=== PATIENT | female | born 2000 | race Caucasian/White ===

== ENCOUNTER 2021-06-05 05:35 | Day surgery (SDC) | payer SELFPAY ==
[~2021-06-05] VITALS: Ht 175.3 cm; Wt 90.4 kg
[2021-06-05] MEDS ORDERED: MOTRIN 200200 MG/TAB PO (06:06)
[2021-06-05] MEDS ORDERED: TYLENOL 500MG500 MG PO (06:06)
[2021-06-05] MEDS ORDERED: TUMS500 MG PO (06:07)
[2021-06-05] MEDS ORDERED: MULTI VITAMINS1 TAB PO (06:07)
[2021-06-05 06:09] VITALS: BP 120/76; PULSE 104; TEMP 98.1
[2021-06-05 09:30] VITALS: BP 129/89; PULSE 88; TEMP 97
--- NOTE | 2021-06-05 09:30 | NUR ---
The patient arrived back to [facility] from the recovery room at this time. The patient appears alert and oriented and reports minimal pain at this time. The patient's left lower extremity has a splint/acewrap dressing in place which appears clean, dry and intact. Post operative vital signs were started at this time. The patient's family is at her bedside at this time. The patient denies wanting anything to eat or drink at this time. Will continue to monitor the patient. Call light is within reach.
[2021-06-05 09:45] VITALS: BP 131/77; PULSE 77
--- NOTE | 2021-06-05 09:45 | NUR ---
The patient appears more alert and requests to try some toast and apple juice at this time. The patient's vital signs appear stable. The patient's family remains at her bedside. Will continue to monitor the patient.
[2021-06-05 10:00] VITALS: BP 130/86; PULSE 79
--- NOTE | 2021-06-05 10:00 | NUR ---
The patient appears to be tolerating the juice and toast well. The patient denies wanting anything further to eat or drink at this time. Mother remains at her bedside. Will continue to monitor the patient.
--- NOTE | 2021-06-05 10:10 | NUR ---
The patient ambulated to the bathroom with the use of her knee walker and appeared to tolerate the activity well. The patient voided without difficulty and voices desire to be discharged home. The patient's IV to her left hand was removed and a pressure dressing was applied to the site. The nurse instructed the patient to get dressed and notify the staff when she is ready to be escorted out.
--- NOTE | 2021-06-05 10:30 | NUR ---
Discharge instructions were reviewed with the patient and her mother at this time. They both verbalized understanding and have no quesitons for the nurse at this time. The patient is dressed and ready to be escorted out.
--- NOTE | 2021-06-05 10:40 | NUR ---
The patient was escorted out via wheelchair to a private vehicle by OLAYINKA Rodriguez. The patient's belongings and discharge paperwork were sent with her. The patient's mother is present to drive her home.
== END 2021-06-05 10:40 | disposition home or self-care (01) ==
LOC: SDCO 05:35
DX: S82.62XA Displaced fracture of lateral malleolus of left fibula, initial encounter for closed fracture (principal); V00.181A Fall from other rolling-type pedestrian conveyance, initial encounter
CPT/HCPCS: C1713; J0690; J1100; J2250; J2405; J2704; J2795; J3010; J7120